=== PATIENT | male | born 1985 | race African-American/Black ===

== ENCOUNTER 2016-12-15 21:53 | Emergency (ER) | payer OTHER ==
[~2016-12-15] VITALS: Ht 170.2 cm; Wt 107.0 kg
== END 2016-12-15 23:21 | disposition home or self-care (01) ==
LOC: ED 21:53
PROC: 09C1XZZ Extirpation of Matter from Left External Ear, External Approach (ICD-10-PCS; principal; 2016-12-15)
DX: T16.2XXA Foreign body in left ear, initial encounter (principal)
CPT/HCPCS: 99283

== ENCOUNTER 2020-01-12 12:53 | Outpatient (CLI) | payer OTHER ==
[2020-01-12 13:50] LABS: PLATELET COUNT 258 K/uL (142-355)
[2020-01-12 13:59] LABS: POTASSIUM 3.5 mmol/L (3.6-5.2)
== END 2020-01-12 19:24 | disposition home or self-care (01) ==
LOC: US 12:53
PROVIDERS: Nurse Practitioner Family
DX: R14.0 Abdominal distension (gaseous) (principal); R10.11 Right upper quadrant pain
CPT/HCPCS: 36415; 80053; 81000; 82150; 83690; 85027